=== PATIENT | female | born 1985 | race Hispanic/Latino ===

== ENCOUNTER 2016-12-08 10:55 | Emergency (ER) | payer OTHER ==
[~2016-12-08] VITALS: Ht 157.5 cm; Wt 79.4 kg
[2016-12-08 11:14] VITALS: BP 107/70
--- NOTE | 2016-12-08 11:54 | ED GI/GU/ABDOMINAL COMPLAINT ---
History of Present Illness General Chief Complaint: Female Urogenital Problems Stated Complaint: VAG BLEEDING 8 WEEKS Source: patient Exam Limitations: no limitations Vital Signs & Intake/Output Vital Signs & Intake/Output Vital Signs Date Time Temp Pulse Resp B/P B/P Pulse O2 O2 Flow FiO2 Mean Ox Delivery Rate 12/08 1114 97.6 82 16 107/70 98 Room Air Allergies Coded Allergies: Penicillins (UNKNOWN 12/08/16) Reconcile Medications Nitrofurantoin Monohyd/M-Cryst (Macrobid 100 MG Capsule) 100 MG CAPSULE 1 CAP PO BID UTI with food Vit #108/Iron/FA ( One Tablet) 30 MG IRON-800 MCG TABLET 1 TAB PO DAILY Triage Note: PT HERE WITH VAGINAL BLEEDING THAT STARTED THIS AM PT STATES USED ONE PAD. PT LIVING IN [place] DOES NOT HAVE OBGYN. PT STATES SHE IS 8 WEEKS Triage Nurses Notes Reviewed? yes ? y Is pt currently ? No Onset: Gradual Duration: hour(s): (4) Timing: no prior history Quality/Severity: cramping Severity Numbers: 4 Location: suprapubic Radiation: no radiation Activities at Onset: none Prior Abdominal Problems: none HPI: Patient is a 31-year-old female, currently 9 weeks coming in to the emergency department complaining of lower abdominal cramping and vaginal bleeding that started this morning. She reports that it started off bright red, not passing any clots, now turning darker in color. No history of vaginal bleeding with prior pregnancies. She does report daily nausea and vomiting since onset of 9 weeks ago. Denies any chest pain palpitations or shortness of breath. No lightheadedness or dizziness. (JAMES CRAIG) Past History Travel History Traveled to [place] past 21 day No Medical History Any Pertinent Medical History? see below for history Surgical History Surgical History: non-contributory Psychosocial History What is your primary language German Tobacco Use: Never used ETOH Use: denies use Illicit Drug Use: denies illicit drug use Family History Hx Contributory? No (JAMES CRAIG) Review of Systems Review of Systems Constitutional: Reports: no symptoms. Comments Review of systems: See HPI, All other systems negative. Constitutional, no chills fever or weight loss HEENT: No visual changes no sore throat no congestion Cardiovascular: No chest pain ,palpitation , orthopnea or ankle swelling Skin, no jaundice no rashes Respiratory: No dyspnea cough sputum or hemoptysis GI: No diarrhea : No dysuria No hematuria Muscle skeletal: no back pain, no neck pain, Neurologic: No numbness no confusion no kenny Psych: No stress anxiety or depression,. Heme/endocrine: No bruising no bleeding no polyuria or polydipsia Immunology: No splenectomy or history of AIDS (JAMES CRAIG) Physical Exam Physical Exam General Appearance: well developed/nourished, no apparent distress Gastrointestinal: normal bowel sounds, soft, non-tender Comments: Well-developed well-nourished person in no acute distress HEENT: Pupils equally round and reactive to light and accommodation. No noted pallor to the conjunctiva bilaterally. Palpable Nose is atraumatic. Pharynx normal. No swelling or edema. Neck: Supple, no lymphadenopathy, normal range of motion without pain or tenderness, moist oromucosa. Back: Nontender, no CVA tenderness. Cardiovascular: Regular rate and rhythms no murmurs rubs or gallops, normal JVP Respiratory: Chest nontender. No respiratory distress.breath sounds clear to auscultation bilaterally Abdomen: Soft, nontender nondistended, no appreciable organomegaly. Normal bowel sounds. No ascites, no rebound or guarding. Extremity: No edema Neuro: Alert oriented x3 Skin: No appreciable rash on exposed skin, skin is warm and dry. Psych: Mood and affect is normal, memory and judgment is normal. Core Measures ACS in differential dx? No Severe Sepsis Present: No Septic Shock Present: No (JAMES CRAIG) Progress Differential Diagnosis: friend , missed , intrauterine , chorionic hemorrhage Plan of Care: Orders Procedure Date/time Status CULTURE,URINE 12/08 1311 Active Add-on Test (ER Only) 12/08 1308 Active URINALYSIS 12/08 1058 Complete HUMAN BETA HCG TITRE 12/08 1058 Complete COMPREHENSIVE METABOLIC PANEL 12/08 1058 Complete CBC WITHOUT DIFFERENTIAL 12/08 1058 Complete RHOGAM WORK-UP 12/08 1058 Complete Laboratory Tests 12/08/16 1210: Urinalysis LIGHT H, Urine Color YEL, Urine Clarity HAZY H, Urine pH 7.5, Ur Specific [place] 1.020, Urine Protein NEG, Urine Ketones NEG, Urine Nitrite NEG, Urine Bilirubin NEG, Urine Urobilinogen 0.2, Ur Leukocyte Esterase SMALL H, Ur Microscopic SEDIMENT EXAMINED, Urine RBC 3-5, Urine WBC 15-25 H, Ur Epithelial Cells PACKD H, Urine Bacteria MOD H, Urine Hemoglobin LARGE H, Urine Glucose NEG 12/08/16 1148: Anion Gap 11, Estimated GFR > 60, BUN/Creatinine Ratio 28.0 H, Glucose 83, Calcium 9.8, Total Bilirubin 0.7, AST 13 L, ALT 28, Alkaline Phosphatase 44, Total Protein 7.0, Albumin 3.9, Globulin 3.1, Albumin/Globulin Ratio 1.3, Beta HCG, Quant [id number], CBC w Diff NO MAN DIFF REQ, RBC 4.43, MCV 78.1 L, MCH 25.6 L, RDW 14.8 H, MPV 6.8 L, Gran % 67.4, Lymphocytes % 25.3, Monocytes % 6.7, Eosinophils % 0.4, Basophils % 0.2, Absolute Granulocytes 6.1, Absolute Lymphocytes 2.3, Absolute Monocytes 0.6, Absolute Eosinophils 0, Absolute Basophils 0, PUBS MCHC 32.8 L Microbiology 12/08 1331 URINE ROUT: Urine Culture - RECD Diagnostic Imaging: Viewed by Me: Ultrasound. Discussed w/RAD: Ultrasound. Radiology Impression: PATIENT: ROSA MARIA DURON PRESENT AGE: 31 PATIENT ACCOUNT NO: [id number] : 86 LOCATION: [facility] ORDERING PHYSICIAN: JAMES PENA SERVICE DATE: 12/08/16 EXAM TYPE: US - US- VIABILITY EXAMINATION: US , VIABILITY CLINICAL INFORMATION: 31-year-old female with history of 8 weeks of presents with vaginal bleeding and cramping. COMPARISON: None TECHNIQUE: Sonographic imaging of the pelvis was performed using transabdominal and transvaginal transducers. FINDINGS: Based on the last menstrual period, the estimated gestational age is 8 weeks, 6 days. Transabdominal and transvaginal sonographic images show presence of a well-formed gestational sac within the endometrial cavity with normal surrounding decidual reaction. No subchorionic hemorrhage. The gestational sac has an average diameter of 3.88 cm (9 weeks, 3 days). A normal, 0.5 cm diameter yolk sac is seen. The crown-rump length is approximately 1.83 cm (8 weeks, 3 days). heart rate is 170 bpm. Cervical canal is closed and measures 3.2 cm in length. Nabothian cysts of the cervix are noted. No evidence of adnexal mass or pelvic free fluid. IMPRESSION: Single viable intrauterine gestation. The gestational age based on ultrasound is 9 weeks with estimated date of delivery of 07/13/2017. No -related complications are identified. DICTATED BY: JOSE MANUEL ZAPATA MD DATE/TIME DICTATED :12/08/161155 HPLC CHEMIST:ALICIA DATE/TIME TRANSCRIBED:12/08/161155 CONFIDENTIAL, DO NOT COPY WITHOUT APPROPRIATE AUTHORIZATION. < Electronically signed in Other Vendor System> SIGNED BY: JOSE MANUEL ZAPATA MD 12/08/16 1204 Initial ED EKG: none Comments: Patient reports symptoms are improving. Vitals are stable. H&H is stable, slightly anemic. Ultrasound shows single intrauterine . Patient informed that there is potential for threatened although everything looks okay at this time. Patient will follow up with I[facility] SECURITY SPECIALIST this week. Urinalysis is not a clean catch but patient will be started on antibiotics secondary to risk of endometriTIS if left untreated. She'll increase fluids. Also started on vitamins. Discussed with Dr. Caceres with plan. (HEIDY PENA,JAMES) Departure Departure Time of Disposition: 1306 Disposition: HOME OR SELF CARE Condition: Stable Clinical Impression Primary Impression: Qualifiers: Weeks of gestation: 9 weeks Qualified Code: Z3A.09 - 9 weeks gestation of Secondary Impressions: Urinary tract infection Qualifiers: Urinary tract infection type: site unspecified Hematuria presence: with hematuria Qualified Codes: N39.0 - Urinary tract infection, site not specified; R31.9 - Hematuria, unspecified Referrals: NATY HUIZAR,JOSÉ LUIS ZUNIGA DO,JEAN YIN MD,APARNA DOMINGUEZ MD,ROBBIE DOAN MD,VIJAY Additional Instructions: Follow-up with ICT SECURITY SPECIALIST call to make an appointment this week. Your prescriptions were sent to [facility] in [place]. Start taking antibiotics for urinary tract infection. Certainly vitamins. Increase fluids. Return for worsening symptoms or concerns. Departure Forms: Customer Survey General Discharge Information Prescriptions: Current Visit Scripts Vit #108/Iron/FA ( One Tablet) 1 TAB PO DAILY #30 TAB Ref 6 Nitrofurantoin Monohyd/M-Cryst (Macrobid 100 MG Capsule) 1 CAP PO BID #14 CAP with food (JAMES CRAIG) PA/CONSULTING PROPERTY MANAGER Co-Sign Statement Statement: ED Attending supervision documentation- [X] I saw and evaluated the patient. I have also reviewed all the pertinent lab results and diagnostic results. I agree with the findings and the plan of care as documented in the PA's/CONSULTING PROPERTY MANAGER's documentation. [X] I have reviewed the ED Record and agree with the PA's/CONSULTING PROPERTY MANAGER's documentation. [] Additions or exceptions (if any) to the PAs/CONSULTING PROPERTY MANAGER's note and plan are summarized below: [] (DHRUV HUIZAR,DARIA Hatch)
--- NOTE | 2016-12-08 12:04 | ULTRASOUND REPORT ---
EXAMINATION: US , VIABILITY CLINICAL INFORMATION: 31-year-old female with history of 8 weeks of presents with vaginal bleeding and cramping. COMPARISON: None TECHNIQUE: Sonographic imaging of the pelvis was performed using transabdominal and transvaginal transducers. FINDINGS: Based on the last menstrual period, the estimated gestational age is 8 weeks, 6 days. Transabdominal and transvaginal sonographic images show presence of a well-formed gestational sac within the endometrial cavity with normal surrounding decidual reaction. No subchorionic hemorrhage. The gestational sac has an average diameter of 3.88 cm (9 weeks, 3 days). A normal, 0.5 cm diameter yolk sac is seen. The crown-rump length is approximately 1.83 cm (8 weeks, 3 days). heart rate is 170 bpm. Cervical canal is closed and measures 3.2 cm in length. Nabothian cysts of the cervix are noted. No evidence of adnexal mass or pelvic free fluid. IMPRESSION: Single viable intrauterine gestation. The gestational age based on ultrasound is 9 weeks with estimated date of delivery of 07/13/2017. No -related complications are identified.
[2016-12-08 12:07] LABS: ABSOLUTE BASOPHIL COUNT 0 /CUMM (0.0-0.2); ABSOLUTE EOSINOPHIL COUNT 0 /CUMM (0.0-0.7); ABSOLUTE GRANULOCYTE CT 6.1 /CUMM (1.4-6.5); ABSOLUTE LYMPH COUNT 2.3 /CUMM (1.2-3.4); ABSOLUTE MONOCYTE COUNT 0.6 /CUMM (0.10-0.60); BASOPHIL % 0.2 % (0.0-2.0); EOSINOPHIL % 0.4 % (0-5); GRANULOCYTE % 67.4 % (42.2-75.2); HEMATOCRIT 34.6 % (37-47); MEAN CORPUSCULAR HGB 25.6 PG (27.0-31.0); MEAN CORPUSCULAR HGB CONC 32.8 G/DL (33.0-37.0); MEAN CORPUSCULAR VOLUME 78.1 FL (81.0-99.0); MEAN PLATELET VOLUME 6.8 FL (7.4-10.4); PLATELET COUNT 292 /CUMM (130-400); RBC DISTRIBUTION WIDTH 14.8 % (11.5-14.5); RED BLOOD CELL CT 4.43 /CUMM (4.20-5.40)
[2016-12-08] MEDS ORDERED: PRENATAL ONE T1 EACH PO (13:10)
[2016-12-08] MEDS ORDERED: MACROBID 100 M100 MG PO (13:10)
== END 2016-12-08 13:33 ==
LOC: ERH 10:55
PROVIDERS: Physician Assistant
DX: O23.41 Unspecified infection of urinary tract in pregnancy, first trimester (principal); Z3A.09 9 weeks gestation of pregnancy
CPT/HCPCS: 81001; 87086

== ENCOUNTER 2017-01-24 15:30 | Emergency (ER) | payer OTHER ==
[~2017-01-24] VITALS: Ht 157.5 cm; Wt 79.4 kg
[~2017-01-24 15:30] MED LIST: MACROBID 100 M100 MG PO; PRENATAL ONE T1 EACH PO
--- NOTE | 2017-01-24 16:00 | ED GI/GU/ABDOMINAL COMPLAINT ---
History of Present Illness General Chief Complaint: Abdominal Pain/Flank Pain Stated Complaint: LOW ABD CRAMPING 16 WKS Source: patient Exam Limitations: no limitations Vital Signs & Intake/Output Vital Signs & Intake/Output Vital Signs Date Time Temp Pulse Resp B/P B/P Pulse O2 O2 Flow FiO2 Mean Ox Delivery Rate 01/244 Room Air 01/24 190 98.2 91 16 101/69 98 01/24 1532 98.1 99 18 107/71 98 Room Air Allergies Coded Allergies: Penicillins (UNKNOWN 12/08/16) Reconcile Medications Nitrofurantoin Monohyd/M-Cryst (Macrobid 100 MG Capsule) 100 MG CAPSULE 1 CAP PO BID UTI with food Vit #108/Iron/FA ( One Tablet) 30 MG IRON-800 MCG TABLET 1 TAB PO DAILY Triage Note: 31 YEAR OLD FEMALE STATES THAT SHE IS 16 WEEKS AND THAT SINCE 299 SHE HAS BEEN HAVING ABD TIGHTNESS AND LOW ABD CRAMPING, DENIES DISCHARGE. CBC CALLED FROM TRIAGE AND PT TO BE EVALUATED HERE. Triage Nurses Notes Reviewed? yes ? Y Is pt currently ? No Onset: Abrupt Duration: since 3 am Timing: multiple episodes today Location: suprapubic Radiation: no radiation Activities at Onset: sleep Associated Symptoms: BACK PAIN HPI: This is a 31-year-old female currently at 16 weeks gestation by dates who presents to the ER with chief complaint of lower abdominal cramping as well as low back cramping that started at 3 AM. She states symptoms started at 3 am from sleep. No vaginal bleeding or spotting, no vaginal discharge. Denies any dysuria but does complaint of frequency. She called Natividad Scott who is currently taking care of her and stated they couldn't get her in the office and told for evaluation. Past History Travel History Traveled to [place] past 21 day No Medical History Any Pertinent Medical History? see below for history Neurological: NONE EENT: NONE Cardiovascular: NONE Respiratory: NONE Gastrointestinal: NONE Hepatic: NONE Renal: NONE Musculoskeletal: NONE Psychiatric: NONE Endocrine: NONE MUNICIPAL CLERK/Reproductive: Surgical History Surgical History: non-contributory Psychosocial History What is your primary language Swedish Tobacco Use: Never used ETOH Use: denies use Illicit Drug Use: denies illicit drug use Family History Hx Contributory? No Review of Systems Review of Systems Constitutional: Denies: chills, fever. EENTM: Reports: no symptoms. Respiratory: Reports: no symptoms. Cardiovascular: Reports: no symptoms. GI: Reports: abdominal pain. Genitourinary: Denies: discharge, dysuria, frequency, hematuria. Musculoskeletal: Reports: back pain. Skin: Reports: no symptoms. Neurological/Psychological: Reports: no symptoms. Hematologic/Endocrine: Reports: polyuria. Denies: bruising, bleeding, polydipsia. Immunologic/Allergic: Denies: splenectomy. All Other Systems: Reviewed and Negative Physical Exam Physical Exam General Appearance: well developed/nourished, alert, awake, anxious, mild distress Head: atraumatic, normal appearance Eyes: Bilateral: normal appearance, PERRL, EOMI. Ears, Nose, Throat, Mouth: hearing grossly normal, moist mucous membrane Neck: normal inspection, supple, full range of motion Respiratory: normal breath sounds, chest non-tender, no respiratory distress Cardiovascular: regular rate/rhythm Peripheral Pulses: 2+ radial (R), 2+ radial (L) Gastrointestinal: normal bowel sounds, soft, tenderness (MINIMAL SUPRAPUBIC) Extremities: normal range of motion Neurologic/Psych: no motor/sensory deficits, awake, alert, oriented x 3 Skin: intact, normal color, warm/dry Core Measures ACS in differential dx? No Severe Sepsis Present: No Septic Shock Present: No Progress Differential Diagnosis: UTI/pyelo, CONTRACTIONS, SUBCHORIONIC HEMORRHAGE, PLACENTAL ABRUPTION Plan of Care: Orders Procedure Date/time Status URINALYSIS 01/24 1551 Complete Laboratory Tests 01/24/17 1551: Urine Color YEL, Urine Clarity CLEAR, Urine pH 6.5, Ur Specific [place] <= 1.005 , Urine Protein NEG, Urine Ketones NEG, Urine Nitrite NEG, Urine Bilirubin NEG, Urine Urobilinogen 0.2, Ur Leukocyte Esterase NEG, Ur Microscopic SEDIMENT EXAMINED, Urine RBC RARE, Urine WBC RARE, Ur Epithelial Cells RARE, Urine Hemoglobin SMALL H, Urine Glucose NEG U/S PARTIAL PLACENTA PREVIA 16 WEEKS 5 DAYS HYPOECHOIC AREA ? MARGINAL PLACENTAL ABRUPTION VS HEMORRHAGE VS CHORIOAMNIOTIC SEPARATION D/W DR DOMINGUEZ ZONING ENGINEER FOR DR CHOUDHURY. BLOOD TYPE A POS. WILL FOLLOW UP ON FRIDAY FOR REPEAT ULTRASOUND TO REEVALUATE AREA OF ? SUBCHORIONIC HEMOORAGE VS ABRUPTIONS. NO PAIN ON DISCHARGE. (ALISHA HUIZAR,POLA) Diagnostic Imaging: Viewed by Me: Ultrasound. Discussed w/RAD: Ultrasound. Radiology Impression: PATIENT: ROSA MARIA DURON PRESENT AGE: 31 PATIENT ACCOUNT NO: [id number] : 86 LOCATION: [facility] ORDERING PHYSICIAN: POLA CASTRO MD SERVICE DATE: 01/24/17-1601 EXAM TYPE: US - US- VIABILITY EXAMINATION: US , VIABILITY CLINICAL INFORMATION: Lower abdominal cramping, placenta previa. Evaluate viability. COMPARISON: None TECHNIQUE: A viability ultrasound was performed. Real-time assessment by the reading radiologist was performed. FINDINGS: Based on the patient's last menstrual period of 10/07/2016, a 15 week 4 day gestation as expected with estimated date of delivery of 07/14/2017. A single live intrauterine gestation in breech presentation and longitudinal lie is identified with a positive heartbeat of 146 bpm. The placenta is posterior in location. The placental edge extends to the edge of the internal cervical os, consistent with a low-lying placenta. In addition, there is a curvilinear bandlike area of sonolucency seen at the lower placental margin with no associated vascular flow, raising the suspicion of a marginal placental abruption or subchorionic hemorrhage. Alternatively, findings may be related to incomplete chorioamnionic fusion, which may be normal for up to 16 weeks gestation. The internal os remains closed. Normal movement is observed. A dedicated anatomic survey was not performed. The following dating parameters were obtained: BPD 3.1 cm equals 15 weeks and 6 days. Head circumference 13.0 cm equals 16 weeks 5 days. Abdominal circumference 9.9 cm equals 16 weeks 0 days. Femur length 2.2 cm equals 16 weeks 5 days. Head circumference to abdominal circumference ratio is normal at 1.31. Based on these parameters, weight is estimated at 152 g +/ - 20 2 g (5 ounces +/- 1 ounce). The amount of amniotic fluid present is normal. IMPRESSION: 1. Single live intrauterine gestation is identified with a positive heartbeat and average gestational age of 16 weeks and 3 days which corresponds to an estimated date of delivery of 07/08/2017. These dates are within 6 days of the clinically expected dates. 2. Low-lying placenta is seen with associated findings of either a marginal placental abruption versus subchorionic hemorrhage or chorioamnionic separation. Close clinical correlation and short interval follow-up ultrasound evaluation is recommended for reassessment. Findings discussed with Dr. Castro 01/24/2017, 5:30 PM. DICTATED BY : ANNETTE PINEDA MD DATE/TIME DICTATED:01/24/171658 MECHANICAL TECHNICAL SERVICE SPECIALIST: ALICIA DATE/TIME TRANSCRIBED:01/24/171658 CONFIDENTIAL, DO NOT COPY WITHOUT APPROPRIATE AUTHORIZATION. <Electronically signed in Other Vendor System> SIGNED BY: ANNETTE PINEDA MD 01/24/17 1736 Initial ED EKG: none Departure Departure Time of Disposition: 1841 Disposition: HOME OR SELF CARE Condition: Stable Clinical Impression Primary Impression: Placenta, abnormal Referrals: PATIENT HAS NO PRIMARY CARE DR (PCP/Family) Additional Instructions: FOLLOW UP WITH YOUR OBGYN DOCTOR ON FRIDAY FOR REPEAT ULTRASOUND NO TAMPONS, NO INTERCOURSE UNTIL CLEARED TO DO SO RETURN TO THE ER FOR ANY CHANGING OR WORSENING SYMPTOMS Departure Forms: Customer Survey General Discharge Information
--- NOTE | 2017-01-24 17:36 | ULTRASOUND REPORT ---
EXAMINATION: US , VIABILITY CLINICAL INFORMATION: Lower abdominal cramping, placenta previa. Evaluate viability. COMPARISON: None TECHNIQUE: A viability ultrasound was performed. Real-time assessment by the reading radiologist was performed. FINDINGS: Based on the patient's last menstrual period of 10/07/2016, a 15 week 4 day gestation as expected with estimated date of delivery of 07/14/2017. A single live intrauterine gestation in breech presentation and longitudinal lie is identified with a positive heartbeat of 146 bpm. The placenta is posterior in location. The placental edge extends to the edge of the internal cervical os, consistent with a low-lying placenta. In addition, there is a curvilinear bandlike area of sonolucency seen at the lower placental margin with no associated vascular flow, raising the suspicion of a marginal placental abruption or subchorionic hemorrhage. Alternatively, findings may be related to incomplete chorioamnionic fusion, which may be normal for up to 16 weeks gestation. The internal os remains closed. Normal movement is observed. A dedicated anatomic survey was not performed. The following dating parameters were obtained: BPD 3.1 cm equals 15 weeks and 6 days. Head circumference 13.0 cm equals 16 weeks 5 days. Abdominal circumference 9.9 cm equals 16 weeks 0 days. Femur length 2.2 cm equals 16 weeks 5 days. Head circumference to abdominal circumference ratio is normal at 1.31. Based on these parameters, weight is estimated at 152 g +/- 20 2 g (5 ounces +/- 1 ounce). The amount of amniotic fluid present is normal. IMPRESSION: 1. Single live intrauterine gestation is identified with a positive heartbeat and average gestational age of 16 weeks and 3 days which corresponds to an estimated date of delivery of 07/08/2017. These dates are within 6 days of the clinically expected dates. 2. Low-lying placenta is seen with associated findings of either a marginal placental abruption versus subchorionic hemorrhage or chorioamnionic separation. Close clinical correlation and short interval follow-up ultrasound evaluation is recommended for reassessment. Findings discussed with Dr. Castro 01/24/2017, 5:30 PM.
[2017-01-24 19:04] VITALS: BP 101/69
== END 2017-01-24 19:05 ==
LOC: ERH 15:30
DX: O43.92 Unspecified placental disorder, second trimester (principal); Z3A.16 16 weeks gestation of pregnancy
CPT/HCPCS: 81001

== ENCOUNTER 2018-02-10 17:01 | Emergency (ER) | payer OTHER ==
[~2018-02-10] VITALS: Ht 160 cm; Wt 81.6 kg
[~2018-02-10 17:01] MED LIST changes: +FLOMAX0.4 M1 PO
[2018-02-10 18:07] LABS: ABSOLUTE BASOPHIL COUNT 0.1 /CUMM (0.0-0.2); ABSOLUTE EOSINOPHIL COUNT 0 /CUMM (0.0-0.7); ABSOLUTE GRANULOCYTE CT 11.6 /CUMM (1.4-6.5); ABSOLUTE MONOCYTE COUNT 0.7 /CUMM (0.10-0.60); BASOPHIL % 0.4 % (0.0-2.0); EOSINOPHIL % 0.2 % (0-5); GRANULOCYTE % 80.2 % (42.2-75.2); HEMATOCRIT 35.3 % (37-47); MEAN CORPUSCULAR HGB 26.5 PG (27.0-31.0); MEAN CORPUSCULAR HGB CONC 33.1 G/DL (33.0-37.0); MEAN PLATELET VOLUME 6.7 FL (7.4-10.4); PLATELET COUNT 338 /CUMM (130-400); RBC DISTRIBUTION WIDTH 14.2 % (11.5-14.5); RED BLOOD CELL CT 4.41 /CUMM (4.20-5.40); WHITE BLOOD CELL COUNT 14.4 /CUMM (4.8-10.8)
--- NOTE | 2018-02-10 18:30 | ED GENERAL ADULT ---
History of Present Illness General Chief Complaint: Abdominal Pain/Flank Pain Stated Complaint: ABDOMINAL PAIN Source: patient Exam Limitations: no limitations Vital Signs & Intake/Output Vital Signs & Intake/Output Vital Signs Date Time Temp Pulse Resp B/P B/P Pulse O2 O2 Flow FiO2 Mean Ox Delivery Rate 02/10 2117 98.3 97 18 116/81 99 Room Air 02/10 1955 97.5 94 18 100/54 97 02/103 98 Room Air 02/10 1717 97.1 116 16 119/88 98 Room Air Allergies Coded Allergies: Penicillins (UNKNOWN 12/08/16) Triage Note: COMPLAINS OF SHARP PAIN IN MID ABD THAT RADIATES INTO HER BACK WITH N/V. PAIN STARTED LAST PM Triage Nurses Notes Reviewed? yes : No Patient currently breastfeeds: No HPI: Pt is a 32 y/o F presenting with abdominal pain x 1 day. Pain began relatively abruptly as suprapubic cramping last night, although progressed to a dull soreness in the periumbilical region with radiation to the lower back. Pt admits to an associated nausea, loss of appetite, and bloating. Pt took 1000 mg of ibuprofen with some relief of pain. Pt states that her LMP was one week ago, states she is not sexually active. Pt states since the recent of her daughter she has been having irregular menses. 3 weeks ago, pt was having dysuria that resolved on its own. Pt denies any current vomiting, diarrhea, vaginal discharge or bleeding, dysuria, polyuria, hematuria, fevers, chills. About 2 weeks ago the patient reports having some dysuria and urgency which for the most part went away without intervention. (Faustino HUIZAR,Abimael) Reconcile Medications Cephalexin 500 MG CAPSULE 1 CAP PO TID UTI Nitrofurantoin Monohyd/M-Cryst (Macrobid 100 MG Capsule) 100 MG CAPSULE 1 CAP PO BID UTI with food Vit #108/Iron/FA ( One Tablet) 30 MG IRON-800 MCG TABLET 1 TAB PO DAILY Tamsulosin HCl (Flomax) 0.4 MG CAP.ER.24H 1 CAP PO DAILY renal stone (Zak Andre DO) Past History Travel History Traveled to [place] past 21 day No Medical History Any Pertinent Medical History? 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 No (Abimael Harmon MD) Review of Systems Review of Systems Constitutional: Denies: see HPI. Respiratory: Denies: see HPI. Cardiovascular: Denies: see HPI. GI: Reports: see HPI. Genitourinary: Denies: see HPI. (Abimael Harmon MD) Physical Exam Physical Exam General Appearance: well developed/nourished, alert, awake Head: atraumatic, normal appearance Eyes: Bilateral: normal appearance. Neck: normal inspection, supple Respiratory: normal breath sounds, lungs clear Cardiovascular: regular rate/rhythm, NMRG Gastrointestinal: normal bowel sounds, soft, no organomegaly, Pt is tender to palpation of RUQ, RLQ. RLQ rebound tenderness present. Rovsign's sign negative Back: normal inspection, No CVA tenderness Core Measures ACS in differential dx? No CVA/TIA Diagnosis: No Sepsis Present: No Sepsis Focused Exam Completed? No (Abimael Harmon MD) Progress Differential Diagnoses I considered the following diagnoses in my evaluation of the patient: Urinary tract infection, appendicitis, lower suspicion for ovarian torsion, PID given the patient of pain in the epigastric region and flank. Could be gas pain or constipation as well. Patient denies possibility of but will address with urine . Plan of Care: Orders Procedure Date/time Status LACTIC ACID 02/10 2006 Active URINE 02/10 1706 Complete URINALYSIS 02/10 1706 Complete LIPASE 02/10 1706 Complete LACTIC ACID 02/10 1706 Complete HEPATIC FUNCTION PANEL 02/10 1706 Complete CBC WITHOUT DIFFERENTIAL 02/10 1706 Complete BASIC METABOLIC PANEL 02/10 170 Complete Laboratory Tests 02/10/18 1843: Urine Color YEL, Urine Clarity CLEAR, Urine pH 6.5, Ur Specific [place] 1.025, Urine Protein NEG, Urine Ketones NEG, Urine Nitrite NEG, Urine Bilirubin NEG, Urine Urobilinogen 1.0, Ur Leukocyte Esterase TRACE H, Ur Microscopic SEDIMENT EXAMINED, Urine RBC 3-5, Urine WBC 3-5 H, Ur Epithelial Cells FEW, Urine Bacteria FEW H, Urine Mucus FEW, Urine Hemoglobin MOD H, Urine Glucose NEG, Urine Test NEGATIVE 02/10/18 1740: Anion Gap 10, Estimated GFR > 60, BUN/Creatinine Ratio 15.7, Glucose 90, Lactic Acid 1.0, Calcium 9.1, Total Bilirubin 0.5, Direct Bilirubin 0.2, AST 15, ALT 22 , Alkaline Phosphatase 48, Total Protein 7.1, Albumin 3.9, Lipase 41, CBC w Diff NO MAN DIFF REQ, RBC 4.41, MCV 80.0 L, MCH 26.5 L, MCHC 33.1, RDW 14.2, MPV 6.7 L, Gran % 80.2 H, Lymphocytes % 14.0 L, Monocytes % 5.2, Eosinophils % 0.2, Basophils % 0.4, Absolute Granulocytes 11.6 H, Absolute Lymphocytes 2.0, Absolute Monocytes 0.7 H, Absolute Eosinophils 0, Absolute Basophils 0.1 Plan for labs, urinalysis, CT abdomen pelvis. 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 Urinalysis is moderately convincing for urinary tract infection. Labs reveal mild to moderate leukocytosis. CT abdomen pelvis is essentially unremarkable. Finding of renal stone and right sided ovarian cyst are discussed with the patient. She is discharged home on outpatient course of Keflex for urinary tract infection. Return precautions and follow-up instructions are provided. Initial ED EKG: none (Abimael Harmon MD) Departure Departure Time of Disposition: 2036 Disposition: HOME OR SELF CARE Condition: Stable Clinical Impression Primary Impression: UTI (urinary tract infection) Referrals: Patient Has No Primary Care Dr (PCP/Family) Additional Instructions: Thank you for coming to [facility] today. It appears on the lab work that you have a mild urinary tract infection. Please take the antibiotics as prescribed. Please return to the emergency department if you develop any worsening pain or fever or chills or nausea or vomiting or diarrhea. Sometimes very early appendicitis is missed by CAT scans and therefore if pain worsens, please return to the emergency department. As we discussed, there are also certain ovarian diseases that would require further imaging if your symptoms worsen despite treatment. Departure Forms: Customer Survey General Discharge Information Prescriptions: Current Visit Scripts Cephalexin 1 CAP PO TID #30 CAP (Abimael Harmon MD) Departure Comments I agree with the physician's evaluation above PA/MACHINE ENGRAVER Co-Sign Statement Statement: ED Attending supervision documentation- [] I saw and evaluated the patient. I have also reviewed all the pertinent lab results and diagnostic results. I agree with the findings and the plan of care as documented in the PA's/MACHINE ENGRAVER's documentation. [] I have reviewed the ED Record and agree with the PA's/MACHINE ENGRAVER's documentation. [] Additions or exceptions (if any) to the PAs/MACHINE ENGRAVER's note and plan are summarized below: [] (Thai GAO,Zak Dill) Critical Care Note Critical Care Note Critical Care Time: non-applicable (Faustino HUIZAR,Abimael)
--- NOTE | 2018-02-10 19:47 | CT SCAN REPORT ---
EXAMINATION: CT ABDOMEN AND PELVIS WITH CONTRAST CLINICAL INFORMATION: Right lower quadrant pain. COMPARISON: None. TECHNIQUE: Contiguous axial thin section helical images of the abdomen and pelvis were performed following the administration of 95 mL of intravenous Optiray 320. The data set was reformatted in the coronal and sagittal planes and reviewed on an independent workstation. DLP: 392 mGy-cm. FINDINGS: There is mild dependent bibasilar atelectasis. The visualized lung bases are otherwise clear. The visualized portions of the heart are unremarkable. There is a small hiatal hernia. The liver is of normal size and attenuation without focal lesions nor intrahepatic biliary ductal dilation. A normal gallbladder is identified. There is no wall thickening or discernible pericholecystic fluid. The spleen, pancreas, adrenal glands are unremarkable. Both kidneys are of normal size and attenuation without hydronephrosis. There is a 10 mm nonobstructive calculus within the lower pole of the right kidney. There is a small right extrarenal pelvis. Following the administration of IV contrast, prompt symmetric nephrograms are displayed. There is no abdominal free fluid. There is neither mesenteric nor retroperitoneal lymphadenopathy. Normal unopacified loops of small and large bowel are identified. A normal appendix is identified. There is a 17 mm right ovarian cyst. There is no pelvic free fluid. The urinary bladder is unremarkable. There is neither pelvic nor inguinal lymphadenopathy. Bone windows: Neither sclerotic nor lytic bone lesions are identified. IMPRESSION: Normal appendix. No evidence for acute abdominal or pelvic inflammatory or infectious processes. 10 mm nonobstructive right renal calculus. 17 mm right ovarian cyst. Small hiatal hernia.
[2018-02-10] MEDS ORDERED: CEPHALEXIN500 M3 PO (20:40)
[2018-02-10 21:17] VITALS: BP 116/81
== END 2018-02-10 21:18 ==
LOC: ERH 17:01
PROVIDERS: Physician Assistant
DX: N39.0 Urinary tract infection, site not specified (principal)
CPT/HCPCS: 74177; 81001; 81025; 96374; 96375; J1885; J2405